=== PATIENT | female | born 1960 | race Caucasian/White ===

== ENCOUNTER → 2020-06-24 | Outpatient (CLI) | payer OTHER ==
[~2020-06-24] MED LIST: ARTHRITIS PAIN650 M2 PO; ASPIRIN EC81 MG PO; DEXILANT60 MG PO; DULOXETINE HCL60 MG PO; FIORINAL 50-321 EACH PO; LEVOCETIRIZINE D5 MG PO; LOVASTATIN40 MG PO; MICROZIDE12.5 MG PO; NOVOLIN 70100 UNIT/1 SQ; SINGULAIR10 MG PO; TOPROL XL25 MG PO; TRULICITY0.75 MG/0. SQ; WELLBUTRIN XL300 M1 PO
[2020-06-25 09:14] LABS: VITAMIN D, 25-HYDROXY 25.9 ng/mL (30.0-100.0)
[2020-06-25 10:14] LABS: RHEUMATOID ARTHRITIS FACTOR <10.0 IU/mL (0.0-13.9)
== END ==
LOC: LAB 09:48
PROVIDERS: Nurse Practitioner Family
DX: M19.90 Unspecified osteoarthritis, unspecified site (principal); E55.9 Vitamin D deficiency, unspecified; D80.9 Immunodeficiency with predominantly antibody defects, unspecified; M25.50 Pain in unspecified joint; R76.8 Other specified abnormal immunological findings in serum; M19.041 Primary osteoarthritis, right hand
CPT/HCPCS: 36415; 73120; 82550; 83520; 85652; 86140; 86431

== ENCOUNTER → 2020-06-25 | Outpatient (CLI) | payer OTHER | LOC: KOH-I 14:50 | DX: R51.9 Headache, unspecified (principal) | CPT/HCPCS: 70450 ==

== ENCOUNTER 2021-08-03 18:19 | Inpatient (IN) | payer OTHER ==
[~2021-08-03] VITALS: Ht 162.6 cm; Wt 65.1 kg
[~2021-08-03 18:19] MED LIST changes: +BUTALB-ACETAMI1 EAC2 PO; -FIORINAL 50-321 EACH PO; +LOSARTAN POTASS50 MG PO; -LOVASTATIN40 MG PO
[2021-08-03 19:55] LABS: HEMOGLOBIN 11.6 gm/dl (12.3-15.3); RED BLOOD COUNT 4.18 M/UL (4.00-5.10); WHITE BLOOD COUNT 20.5 K/UL (4.5-11.0)
[2021-08-04 04:11] LABS: HEMOGLOBIN 10.7 gm/dl (12.3-15.3); RED BLOOD COUNT 3.86 M/UL (4.00-5.10); WHITE BLOOD COUNT 16.9 K/UL (4.5-11.0)
[2021-08-04 04:35] LABS: BUN/CREATININE RATIO 11 (0-10)
[2021-08-04] MEDS ORDERED: MYRBETRIQ50 MG PO (10:37)
[2021-08-04] MEDS ORDERED: DULOXETINE HCL30 MG PO (10:40)
[2021-08-04] MEDS ORDERED: HYDROXYZINE HCL25 MG PO (10:41)
[2021-08-04] MEDS ORDERED: METFORMIN HCL1000 MG PO (10:43)
[2021-08-04] MEDS ORDERED: OZEMPIC0.25 MG/0. SQ (10:45)
[2021-08-04] MEDS ORDERED: MELOXICAM7.5 MG PO (10:46)
[2021-08-04] MEDS ORDERED: ONDANSETRON HCL8 MG PO (10:47)
[2021-08-04] MEDS ORDERED: TOPIRAMATE50 MG PO (10:49)
[2021-08-04] MEDS ORDERED: PROTONIX40 MG PO (10:50)
[2021-08-05 06:53] LABS: HEMOGLOBIN 9.5 gm/dl (12.3-15.3); RED BLOOD COUNT 3.51 M/UL (4.00-5.10)
[2021-08-06 06:33] LABS: HEMOGLOBIN 9.6 gm/dl (12.3-15.3); RED BLOOD COUNT 3.38 M/UL (4.00-5.10); WHITE BLOOD COUNT 8.7 K/UL (4.5-11.0)
[2021-08-06] MEDS ORDERED: CEFUROXIME500 MG PO (11:14)
== END 2021-08-06 12:59 | disposition home or self-care (01) | DRG 872 ==
LOC: ER1 18:19 → MED SURG 4 21:45 → CDU 21:45 → MED SURG 4 21:45
PROVIDERS: Internal Medicine; Internal Medicine Infectious Disease; Physician Assistant; ADMIT Internal Medicine
DX: A41.51 Sepsis due to Escherichia coli [E. coli] (principal); N30.00 Acute cystitis without hematuria; N17.9 Acute kidney failure, unspecified; K35.80 Unspecified acute appendicitis; E87.1 Hypo-osmolality and hyponatremia; I13.0 Hypertensive heart and chronic kidney disease with heart failure and stage 1 through stage 4 chronic kidney disease, or unspecified chronic kidney disease; Z20.822 Contact with and (suspected) exposure to COVID-19; N18.30 Chronic kidney disease, stage 3 unspecified; E87.6 Hypokalemia; F41.8 Other specified anxiety disorders; F32.A Depression, unspecified; D63.1 Anemia in chronic kidney disease; E11.22 Type 2 diabetes mellitus with diabetic chronic kidney disease; E86.0 Dehydration; E78.5 Hyperlipidemia, unspecified; F17.210 Nicotine dependence, cigarettes, uncomplicated; Z79.4 Long term (current) use of insulin; Z98.891 History of uterine scar from previous surgery; Z90.710 Acquired absence of both cervix and uterus; Z98.1 Arthrodesis status; Z83.3 Family history of diabetes mellitus
CPT/HCPCS: 0240U; 36415; 71045; 80048; 80053; 81001; 82550; 82553; 82962; 83605; 83690; 83735; 84100; 84132; 84484; 85025; 85027; 86140; 87040; 87077; 87086; 87186; 96361; 96365; 96372; 96375; 96376; 99285; G0378; J0696; J1335; J1650; J2270; J2405; J2543; J3475; J3480; Q9967

== ENCOUNTER → 2021-08-11 | Outpatient (CLI) | payer OTHER ==
[~2021-08-11] MED LIST changes: +CEFUROXIME500 MG PO; +DULOXETINE HCL30 MG PO; +HYDROXYZINE HCL25 MG PO; +MELOXICAM7.5 MG PO; +METFORMIN HCL1000 MG PO; +MYRBETRIQ50 MG PO; +ONDANSETRON HCL8 MG PO; +OZEMPIC0.25 MG/0. SQ; +PROTONIX40 MG PO; +TOPIRAMATE50 MG PO
== END ==
LOC: LAB 12:52
PROVIDERS: Internal Medicine
DX: N17.9 Acute kidney failure, unspecified (principal)
CPT/HCPCS: 36415; 80048